=== PATIENT | male | born 1965 | race Caucasian/White ===

== ENCOUNTER 2022-12-14 13:37 | Outpatient (CLI) | payer OTHER, SELFPAY ==
--- NOTE | 2022-12-14 14:03 | ECG_ITS ---
Measurements Intervals [place] Rate: 78 P: 33 FL: 181 QRS: 32 QRSD: 110 T: 41 QT: 380 QTc: 433 Interpretive Statements SINUS RHYTHM POSSIBLE RIGHT VENTRICULAR CONDUCTION DELAY NO PREVIOUS ECG AVAILABLE FOR COMPARISON Electronically Signed On 12-14-2022 18:35:15 CDT by Efrem Freedman M.D.
[2022-12-14 14:26] LABS: Anion Gap 13 mmol/L (8-16); Blood Urea Nitrogen 16 mg/dL (9-20); Calcium 8.7 mg/dL (8.4-10.2); Carbon Dioxide 22 mmol/L (22-30); Chloride 103 mmol/L (98-107); Estimated Glomerular Filt Rate > 60; Glucose 122 mg/dL (65-110); Potassium 4.1 mmol/L (3.4-5.0); Sodium 138 mmol/L (137-145)
== END 2022-12-14 13:38 | disposition home or self-care (01) ==
PROVIDERS: Visit Provider Anesthesiology
DX: I10 Essential (primary) hypertension (principal); E11.9 Type 2 diabetes mellitus without complications
CPT/HCPCS: 36415; 80048; 93005

== ENCOUNTER 2022-12-20 00:46 | Day surgery (SDC) | payer OTHER, SELFPAY ==
[2022-12-13 15:04] VITALS: BMI 29.0
--- NOTE | 2022-12-13 15:17 | PC.NURSE ---
Addendum entered by Aide Ray RN 12/13/22 15:27: PATIENT INSTRUCTED TO CONSULT DR RICHEY FOR INSTRUCTIONS ON STOPPING ASPIRIN Original Note: Report to the Outpatient Waiting Room, entrance under the green pavilion located off [facility], at time 10:00AM on date 12-20-22. Planned Procedure Time: 12:00PM. Time changes happen often and if your time is changed the preop area will call you the afternoon before. - You and your visitor will be asked to self-screen and do not enter if you have any COVID symptoms. - A mask is optional within the hospital at this time. Patients may have clear liquids (water, carbonated beverages, clear teas, apple juice) until 3 hours prior to surgery (9:00AM) with a maximum of 20 ounces. - No food from midnight until time of surgery Take the following medications with a SIP of water the morning of surgery: N/A (TAKE METOPROLOL AT NIGHT) DO NOT STOP ANY OF YOUR OTHER PRESCRIPTION MEDICATIONS PRIOR TO SURGERY ?EXCEPT THE FOLLOWING Medications to discontinue per physician PROBIOTICS Date to take last dose 12-16-25 Please no make-up, nail azeri, hairspray, perfume, deodorant, or body powder the day of surgery. No jewelry (including any body piercings) or valuables the day of surgery, leave them at home. Please take a shower or bath the night before, or the morning of, surgery with an antibacterial soap. Wear comfortable, loose fitting clothing. - Jewelry must be removed prior to entering the operating room. Rings and piercings that are not removed may be cut off. - The hospital will not accept responsibility for valuables. - Please leave all valuables, including medications, at home the day of surgery. If you are going home after surgery, a licensed trackless trolley driver must drive you home. - NO public transportation without another adult if you receive anesthesia. - We recommend that an adult stay with you for 24 hours following discharge. - We also recommend that you do not drive, make important decision, drink alcoholic beverages, or take any drugs that were not prescribed by your health care provider for at least 24 hours after your discharge time. Follow any additional instructions given to you from your surgeon. If you or anyone in your household have experienced Covid symptoms in the past week, please notify your surgeon or the nurse liaison at the phone number below for possible testing. Telephone instructions given to PATIENT and asked if any additional questions and then verbalized understanding. Patient advised to call surgeon office or pre surgery nurse liaison [phone] if any additional questions.
[2022-12-20] VITALS (7 sets, daily range): BP systolic 121–140; BP diastolic 81–91; PULSE 63–82; RESP 12–20; TEMP 36.2–36.9; O2SAT 97–100
[2022-12-20 10:44] LABS: Glucose Point of Care 91 mg/dl (65-105)
[2022-12-20] MEDS: LACTATED RINGERS 1,000 ML 30 ML IV CONT ×2 (10:55→14:05)
--- NOTE | 2022-12-20 11:04 | WPDANESEPPF ---
Anes - Initial Pre Proc Eval Procedure: Operation Date: 12/20/22 12:00 Proposed Procedures p Penile Plication Repair - Camron Beatty MD Date/Time: 12/20/22 11:05 Surgeon: Camron Beatty MD Pre Op Diagnosis: cr Patient Data Age: 57 Gender: M Height: 1.85 m Weight: 99.4 kg Last Vital Signs Temp 36.2 C L 12/20/22 10:49 Pulse 66 12/20/22 10:49 Resp 14 12/20/22 10:49 BP 140/87 12/20/22 10:49 Pulse Ox 99 12/20/22 10:49 O2 Del Method Room Air 12/20/22 10:49 Allergies Allergy/AdvReac Type Severity Reaction Status Date / Time SURGICAL SCUB AdvReac Rash Uncoded 12/20/22 10:55 Home Medications Medication Instructions Recorded Confirmed Type lisinopril 20 mg tablet 20 mg PO DAILY 12/12/22 12/12/22 History metformin 500 mg tablet 500 mg PO BID 12/12/22 12/12/22 History metoprolol succinate 25 mg 25 mg PO DAILY 12/12/22 12/12/22 History tablet,extended release 24 hr pantoprazole 20 mg tablet,delayed 20 mg PO DAILY 12/12/22 12/12/22 History release rosuvastatin 10 mg tablet 10 mg PO HS 12/12/22 12/12/22 History Lactobacillus 1 cap PO DAILY 12/13/22 12/13/22 History acidophilus-Bifidobac.animalis 2.5 billion cell capsule (Daily Probiotic) aspirin 81 mg capsule 81 mg PO DAILY 12/13/22 12/13/22 History Laboratory Tests 12/20/22 10:41 POC Capillary Glucose 91 mg/dl (65-105) Patient hx anesthesia problems: none Family hx anesthesia problems: none Results Review: All pre-operative results and documents have been reviewed as part of the pre-operative evaluation. [facility] Past Medical History Medical History (Updated 12/20/22 @ 11:19 by Dale Arita DO) Aortic aneurysm stable Bicuspid aortic valve Diabetes type 2, controlled Hyperlipidemia Hypertension NAOMI (obstructive sleep apnea) Social History Social History Smoking packs per day: 1 Smoking cigarettes per day: 20.0 Years smoked: 20 Smoking pack-years: 20.00 Smoking status: Former smoker Tobacco type: cigarettes Second hand tobacco smoke exposure: Yes Alcohol intake: current Alcohol use details: OCASSIONALLY/SOCIALLY Substance use: never Substance use type: does not use Living arrangements: with family Spiritual care concerns: No Anes - Eval Final PreProcedure Day of Procedure 12/20/22 11:05 Patient weight: overweight Heart: regular rate and rhythm Lungs: clear to auscultation Airway: Mallampati scale class II Neurological: alert and oriented Last oral intake: >/= 8 hours ASA classification: III Emergent: no Anesthetic plan: proceed Anesthesia type and monitoring: general LMA and standard monitoring Results Review: All pre-operative results and documents have been reviewed as part of the pre-operative evaluation. Informed Consent: The patient's anesthetic plan and its attendant risks and benefits were discussed with the patient/family/POA. Questions were solicited and answers provided to the satisfaction of the patient/family/POA.
--- NOTE | 2022-12-20 12:02 | P.HP_ITS ---
H&P: HPI History of Present Illness Date/Time: 12/20/22 12:02 Chief Complaint: penile curvature [facility] Past Medical History Medical History (Updated 12/20/22 @ 12:08 by Camron Beatty MD) Aortic aneurysm stable Bicuspid aortic valve Diabetes type 2, controlled Hyperlipidemia Hypertension NAOMI (obstructive sleep apnea) Peyronie disease Social History Social History Smoking packs per day: 1 Smoking cigarettes per day: 20.0 Years smoked: 20 Smoking pack-years: 20.00 Smoking status: Former smoker Tobacco type: cigarettes Second hand tobacco smoke exposure: Yes Alcohol intake: current Alcohol use details: OCASSIONALLY/SOCIALLY Substance use: never Substance use type: does not use Living arrangements: with family Spiritual care concerns: No Meds Home Medications and Allergies Home Medications Medication Instructions Recorded Confirmed Type lisinopril 20 mg tablet 20 mg PO DAILY 12/12/22 12/12/22 History metformin 500 mg tablet 500 mg PO BID 12/12/22 12/12/22 History metoprolol succinate 25 mg 25 mg PO DAILY 12/12/22 12/12/22 History tablet,extended release 24 hr pantoprazole 20 mg tablet,delayed 20 mg PO DAILY 12/12/22 12/12/22 History release rosuvastatin 10 mg tablet 10 mg PO HS 12/12/22 12/12/22 History Lactobacillus 1 cap PO DAILY 12/13/22 12/13/22 History acidophilus-Bifidobac.animalis 2.5 billion cell capsule (Daily Probiotic) aspirin 81 mg capsule 81 mg PO DAILY 12/13/22 12/13/22 History Allergies Allergy/AdvReac Type Severity Reaction Status Date / Time SURGICAL SCUB AdvReac Rash Uncoded 12/20/22 10:55 Vital Signs Vital Signs - 24 hr 12/20/22 10:49 Temperature 36.2 C L Pulse Rate 66 Respiratory Rate 14 Blood Pressure 140/87 Pulse Oximetry 99 Oxygen Delivery Room Air Exam Narrative: awake and alert abdomen soft normal phallus with dorsal distal plaque Assessment and Plan Assessment and plan (1) Peyronie disease: Code(s): N48.6 - Induration penis plastica Status: Acute Plan Plan penile plication - risks, benefits and alternative discussed. Pt agrees to proceed
--- NOTE | 2022-12-20 12:08 | WPDHPUPDATE1 ---
History and Physical Update Update Date/Time: 12/20/22 12:08 History and Physical has been reviewed, including an updated exam of the patient. There are NO changes in the patient's condition. Risks, benefits, and alternatives have been discussed and questions answered. Patient agrees to proceed with procedure.
[2022-12-20] MEDS: ceFAZolin 2 GM/D5W 50 ML 2 GM/50 ML BAG IVPB (12:25)
--- NOTE | 2022-12-20 12:29 | WPDHPUPDATE1 ---
History and Physical Update Update Date/Time: 12/20/22 12:29 History and Physical has been reviewed, including an updated exam of the patient. There are NO changes in the patient's condition. Risks, benefits, and alternatives have been discussed and questions answered. Patient agrees to proceed with procedure.
[2022-12-20] MEDS: BUPivacaine HCL 0.5% PF 30 ML VIAL INFILTRATE (12:58)
[2022-12-20] MEDS: LIDOCAINE HCL 1% LOCAL INJ 20 ML VIAL INFILTRATE (12:58)
--- NOTE | 2022-12-20 14:04 | P.OP_ITS ---
Procedure Note - Detailed Date of Procedure 12/20/22 Pre-op Diagnosis peyronie's Post-op Diagnosis Same Procedure Performed Penile plication, artificial erection Surgeon Camron Beatty MD Anesthesia General Description of Procedure Informed consent was obtained. The patient to the operating. He was given preo perative IV antibiotics. Reduce anesthesia. A penile block with 0.5% Marcaine without epinephrine was performed. Stay suture with 2-0 Prolene was placed through the glans for retraction that was removed at the conclusion of the case we then performed an artificial erection with dilute lidocaine which revealed a 60degree dorsal curvature. We marked the area of maximal curvature. We then opened the ventral aspect of the patient's pre-existing circumcised incision. We then bluntly dissected down to the corporal bodies bilaterally taking great care not to injure the urethra. We use a modified Lue technique placing two 2-0 Ethibond sutures into each corporal body at the point of maximal curvature. We then performed another artificial erection revealing approximately 30? of residual curvature, an additional suture was placed on each side. At this point artificial erection was again performed and revealed less than 10? of curvature in a direction. This appeared to be an excellent cosmetic result. We then closed David's fascia over the Ethibond sutures we closed deep dermal layer with 2-0 Vicryl suture. Again artificial erection was performed and revealed less 10? of curvature in each direction, an excellent cosmetic and functional result. We then closed the skin with interrupted 3-0 and 4-0 chromic sutures. Antibiotic ointment was placed over the incision, compressive dressing was placed. Patient was then awakened and taken to recovery stable condition Estimated Blood Loss 10 Complications No immediate complications Condition Stable Disposition PACU
[2022-12-20 14:11] LABS: Glucose Point of Care 108 mg/dl (65-105)
--- NOTE | 2022-12-20 15:31 | SUR.PHASEII ---
dr davis said for pt to hold his asprin for 5 days and if still swollen then hold his asprin for an additional 2 days.
== END 2022-12-20 15:30 | disposition home or self-care (01) ==
PROVIDERS: Visit Provider Urology
PROC: (CPT 54360; principal; 2022-12-20 12:00)
DX: N48.6 Induration penis plastica (principal); I10 Essential (primary) hypertension; E78.5 Hyperlipidemia, unspecified; G47.33 Obstructive sleep apnea (adult) (pediatric); E11.9 Type 2 diabetes mellitus without complications; I71.40 Abdominal aortic aneurysm, without rupture, unspecified; Q23.1 Congenital insufficiency of aortic valve; Z87.891 Personal history of nicotine dependence; Z79.84 Long term (current) use of oral hypoglycemic drugs; Z79.82 Long term (current) use of aspirin
CPT/HCPCS: 54360; 54235; 82948; A9270; J0330; J0690; J1100; J1170; J2250; J2405; J2704; J3010; J7030; J7120